=== PATIENT | female | born 1960 | race Caucasian/White ===

== ENCOUNTER 2017-04-05 10:38 | Outpatient (CLI) | payer OTHER ==
[2017-04-05 17:34] VITALS: BP 122/78
--- NOTE | 2017-04-06 04:12 | CARDIAC PROCEDURE NOTE ---
DATE OF SERVICE: 04/05/2017 00:00:00 PRIMARY CARE PHYSICIAN: Jak Casillas M.D., [facility] [employer] WORKER: Asmita Miranda M.D., [facility] PROCEDURES PERFORMED: Stress echocardiogram. PROCEDURE SYMPTOMS: Supraventricular tachycardia. CARDIAC RISK FACTORS: Smoker. PREVIOUS CARDIAC PROCEDURES: None. CLINICAL HISTORY: This is a 56-year-old female without known coronary artery disease. She has held her last two doses of metoprolol. Initial resting vital signs were blood pressure 122/78 and heart r ate 112. Height is 65 inches. Weight is 185 pounds. PROCEDURE AND FINDINGS: The patient's identity and date were verified. The consent was signed . After resting echo images were obtained, the patient performed treadmill exercise using the Osmany protocol completing 8 minutes 22 seconds and an estimated workload of 10.1 metabolic equivalents. Ma ximal blood pressure was 176/76 mmHg, with a heart rate of 160 [id number], or 96% of maximal pr edicted heart rate for age. The blood pressure response to exercise was normal. The patient stopped because she rated exercise as 18/20 and her target heart rate was achieved. The resting ECG demonst rated sinus tachycardia with poor R-wave progression. There was less than 0.[address] segment depressi on and a rare PVC. There were no SVT episodes. Post-exercise images were immediately obtained on ce ssation of exercise. FINAL IMPRESSION 1. No ECG signs of ischemia. Test incomplete. Awaiting echocardiographic report. 2. Negative stress test clinically for angina. 3. Rare premature ventricular contraction. JOB #: [id number] EXT JOB #:[id number]
== END 2017-04-05 10:39 | disposition home or self-care (01) ==
LOC: DI 10:38
DX: I47.1 Supraventricular tachycardia (principal); F17.200 Nicotine dependence, unspecified, uncomplicated
CPT/HCPCS: 93351

== ENCOUNTER 2017-06-11 15:27 | Outpatient (CLI) | payer OTHER | END 2017-06-11 15:28 | disposition home or self-care (01) | LOC: SC 15:27 | PROVIDERS: ATTEND Internal Medicine Pulmonary Disease | DX: R06.83 Snoring (principal); I47.1 Supraventricular tachycardia; K21.9 Gastro-esophageal reflux disease without esophagitis | CPT/HCPCS: 99203; 99212 ==

== ENCOUNTER 2017-10-19 22:07 | Outpatient (CLI) | payer OTHER | END 2017-10-19 22:08 | disposition home or self-care (01) | LOC: SC 22:07 | PROVIDERS: ATTEND Internal Medicine Pulmonary Disease | DX: G47.33 Obstructive sleep apnea (adult) (pediatric) (principal); G47.61 Periodic limb movement disorder | CPT/HCPCS: 95810 ==

== ENCOUNTER 2017-11-26 11:00 | Outpatient (CLI) | payer OTHER | END 2017-11-26 11:01 | disposition home or self-care (01) | LOC: SC 11:00 | PROVIDERS: ATTEND Internal Medicine Pulmonary Disease | DX: G47.33 Obstructive sleep apnea (adult) (pediatric) (principal) | CPT/HCPCS: 99212; 99213 ==

== ENCOUNTER 2018-03-18 15:23 | Outpatient (CLI) | payer OTHER | END 2018-03-18 15:24 | disposition home or self-care (01) | LOC: SC 15:23 | PROVIDERS: ATTEND Internal Medicine Pulmonary Disease | DX: G47.33 Obstructive sleep apnea (adult) (pediatric) (principal); G25.81 Restless legs syndrome; G47.61 Periodic limb movement disorder | CPT/HCPCS: 99212; 99213 ==

== ENCOUNTER 2019-02-10 06:06 | Day surgery (SDC) | payer OTHER ==
[2019-02-10] MEDS ORDERED: LACTATED RINGERS 1,000 ML IV ONE ×4 (06:50→08:48)
--- NOTE | 2019-02-10 07:01 | ANESTHESIA ---
Pre-Anesthesia VS, & Labs - Diagnosis post menopausal bleeding - Procedure myosure hysteroscopy,d&c, polypectomy Vital Signs: Temp Pulse Resp BP Pulse Ox 36.6 C 69 16 138/99 H 97 02/10/19 06:50 02/10/19 06:50 02/10/19 06:50 02/10/19 06:50 02/10/19 06:50 Height 5 ft 5 in Weight (kg) 92 kg - NPO >8 hours - Is Patient ?: Not Applicable Home Medications and Allergies Home Medications: Ambulatory Orders Albuterol Sulfate [Proair Respiclick] 90 mcg IH 02/04/19 Albuterol Sulfate [Proair Respiclick] 90 mcg IH 02/04/19 Amitriptyline [Elavil] 50 mg PO HS 02/04/19 Aspirin [Aspirin EC] 81 mg PO DAILY 02/04/19 Estrogen,Con/M-Progest Acet [Prempro 0.625-5 mg Tablet] 1 each PO DAILY 02/04/19 Metoprolol Tartrate 50 mg PO BID 02/04/19 Pramipexole [Mirapex] 0.25 mg PO HS 02/04/19 Tizanidine HCl [Zanaflex] 2 mg PO PRN PRN 02/04/19 Albuterol Sulfate [Proair Respiclick] 90 mcg IH 02/04/19 Albuterol Sulfate [Proair Respiclick] 90 mcg IH 02/04/19 Amitriptyline [Elavil] 50 mg PO HS 02/04/19 Aspirin [Aspirin EC] 81 mg PO DAILY 02/04/19 Estrogen,Con/M-Progest Acet [Prempro 0.625-5 mg Tablet] 1 each PO DAILY 02/04/19 Metoprolol Tartrate 50 mg PO BID 02/04/19 Pramipexole [Mirapex] 0.25 mg PO HS 02/04/19 Tizanidine HCl [Zanaflex] 2 mg PO PRN PRN 02/04/19 Allergies/Adverse Reactions: Allergies Allergy/AdvReac Type Severity Reaction Status Date / Time bupropion Allergy Intermediate Unknown Verified 02/04/19 10:58 cefazolin Allergy Itching Verified 02/04/19 10:59 celecoxib [From Celebrex] Allergy Edema Verified 02/04/19 10:59 latex Allergy Unknown Verified 02/04/19 10:59 rofecoxib Allergy Edema Verified 02/04/19 11:03 scopolamine Allergy Unknown Verified 02/04/19 11:01 varenicline [From Chantix] Allergy Unknown Verified 02/04/19 11:05 Anes History & Medical History - Anesthetic History Anesthesia Complications: reports: Post-Operative Nausea/Vomiting Family history of Anesthesia Complications: Denies Family history of Malignant Hyperthermia: Denies - Medical History Cardiovascular: reports: Other Pulmonary: reports: None Gastrointestinal: reports: None Urinary: reports: Other Musculoskeletal: reports: Other Endocrine/Autoimmune: reports: None Skin: reports: None - Surgical History General: Colonoscopy Eyes Ears Nose Throat (EENT): Tonsil/Adenoidectomy Gynecologic: Dilation and currettage, Other Orthopedic: Other Exam General: Alert, Oriented x3, Cooperative, No acute distress Dental: Other (bridge) Mouth Openin Fingerbreadth Neck Mobility: Normal Mallampati classification: II Thyromental Distance: greater than 6 cm Respiratory: Lungs clear, Normal breath sounds, No respiratory distress, No accessory muscle use Cardiovascular: Regular rate, Normal S1, Normal S2, No murmurs Plan Anesthesia Type: General Consent for Procedure(s) Verified and Reviewed: No Code Status: Attempt Resuscitation ASA classification: 2-Mild systemic disease Is this case an emergency?: No
[2019-02-10] MEDS ORDERED: LIDOCAINE MPF 2%-EPI 1:200000 20 ML VIAL ONE (07:03)
[2019-02-10] MEDS ORDERED: LIDOCAINE-MPF 1% 30 ML VIAL ONE (07:03)
[2019-02-10] MEDS ORDERED: VASOPRESSIN 20 UNIT/ML VIAL ONE (07:21)
[2019-02-10] MEDS ORDERED: SILVER NITRATE APPLICATOR TOP ONE (07:21)
[2019-02-10] MEDS ORDERED: DOXYCYCLINE INJ 100 MG in SODIUM CHLORIDE 0.9% MINIBAG 100 ML IV ONE (08:04)
[2019-02-10] MEDS ORDERED: ONDANSETRON 4 MG/2 ML VIAL IVP PRN (08:47)
[2019-02-10] MEDS ORDERED: HYDROcod/ACETAM 10 MG/325 MG TABLET PO PRN (08:47)
[2019-02-10] MEDS ORDERED: ONDANSETRON 4 MG/2 ML VIAL IVP ONE (08:52)
[2019-02-10] MEDS ORDERED: ACETAMINOPHEN 1,000 MG/100 ML 100 ML IV ONE (08:52)
[2019-02-10] MEDS ORDERED: DEXAMETHASONE 4 MG/ML VIAL IVP ONE (08:52)
[2019-02-10] MEDS ORDERED: LIDOCAINE-MPF 2% 5 ML VIAL IM ONE (08:52)
[2019-02-10] MEDS ORDERED: PROPOFOL 200 MG/20 ML VIAL IVP ONE (08:52)
[2019-02-10] MEDS ORDERED: KETOROLAC 30 MG/ML VIAL IVP ONE (08:52)
[2019-02-10] MEDS ORDERED: DOXYCYCLINE 100 MG VIAL IV ONE (08:52)
--- NOTE | 2019-02-10 08:54 | OPERATIVE REPORT ---
Operative Report - General Procedure Date: 02/10/19 Planned Procedure: Hysteroscopy, dilation and curettage, removal of left perineal skin tag Pre-Op Diagnosis: Postmenopausal bleeding, thickened endometrium, left perineal skin tag Procedure Performed: Hysteroscopy, Myosure polypectomy, fractional dilation and curettage, removal of left perineal skin tag Post Op Diagnosis: Endometrial polyps, left perineal skin tags - Procedure Note Primary Surgeon: Dr. Annel Arechiga Secondary Surgeon: None Anesthesia Provider: IRVIN Zhang Anesthesia Technique: General LMA (Spinal attempted, but could not enter space; so decision made to proceed with General LMA.), Local (Local: 2% lido with epi, 12 ml for cervical block) Pathology: 1. Endometrial polyps 2. Endocervical curettings (ECC) 3. Endometrial curettings 4. Left perineal skin tags IV Fluids (mL): 500 Estimated Blood Loss (mL): 4 Urine Output (mL): 0 Indications: The patient is a 58-year-old, 0, female with postmenopausal bleeding and an ultrasound demonstrating an endometrial thickness at the upper limit of normal for a postmenopausal woman. She has been postmenopausal for 5 years and underwent endometrial biopsy last year for bleeding. Results did not show concerning finding but was limited by lack of uterine stroma and glands. She has been monitoring the bleeding since then. Of note, there was difficulty entering the endometrial cavity at the time of her endometrial biopsy, making the specimen potentially insufficient. She had recurrent bleeding in mid November, which prompted a repeat ultrasound. She is using Prempro hormonal placement therapy for management of persistent hot flushes. She has a history of previous dilation curettage and hysteroscopy, and endometrial polyp was noted and removed. The pathology of that was benign. 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 Her pelvic ultrasound on 24 January 2018 showed an anteverted uterus with punctate, nonshadowing, high attenuation area within the endometrial cavity and lower uterine segment that could reflect an endometrial calcification or glandular secretion. The endometrial canal echo was otherwise unremarkable. The thickness was at the upper limits of normal for a postmenopausal patient, measuring 5 to 6 mm maximal thickness. No discrete endometrial mass was seen on ultrasound. The ovaries were identified bilaterally and normal in appearance. Following these findings, and with the patient's symptoms of postmenopausal bleeding, it was recommended she undergo repeat visualization of the endometrial cavity, removal of any potential polyps, and thorough curettage to ensure absence of hyper- or neoplasia. The patient was in agreement with this plan. The procedure, risks, benefits, limitations, and alternatives of surgery were discussed. The consent was then reviewed and signed prior to the date of surgery. Findings: Exam under anesthesia: The uterus is approximately 6 weeks in size and anteverted. No adnexal masses were palpable. Hysteroscopic findings: The endometrial cavity was well visualized, including the tubal ostia bilaterally. At the anterior fundus, just to the patient's right of midline, an approximately 1-1.5 cm area of polypoid tissue was noted. A second area of polypoid tissue was noted at the posterior endometrium just above the internal cervical loss. The cavity was otherwise normal in appearance. The polypoid tissue was effectively removed with the MyoSure. Perineum: A cluster of skin tags was noted at the left mid perineum and removed at the stalk. A second, single skin tag was noted just lateral to the left labia majora. This was removed in a similar fashion. The external female genitalia was otherwise normal in appearance. Complications: None - Other Other Information/Narrative: The patient was taken to the operating room, where Spinal anesthetic was attempted but unsuccessful. General anesthesia with LMA was then administered without difficulty. She was then positioned in the high dorsal lithotomy position with her lower extremities in [place] stirrups. Exam under anesthesia was then performed with the findings as noted above. Vagina and perineum were then prepped and draped in a sterile fashion. Procedure Time-Out was then performed. A sterile bivalved speculum was then placed into the vagina, and the anterior lip of the cervix was grasped with a single-tooth tenaculum. Two percent lidocaine with epinephrine was then injected at the 2:00, 4:00, 7:00, and 10:00 positions for a paracervical block, using 12 ml of local. The cervix was then serially dilated to a 7 mm pink acute dilator. A larger size lacrimal duct dilator was utilized at first, then subsequent dilation occurred easily without excessive pressure. The Myosure hysteroscope was then advanced; and , using saline for distension, the cavity was visualized with the findings as note above. Using the Myosure Lite, the Myosure device effectively removed both areas of polypoid tissue, and then the device was removed. Endocervical cur ettage was then performed followed by gentle sharp endometrial curettage. The score was then re-introduced, but visualization was limited due to bleeding. The hysteroscopic portion of the case was then deemed complete. The total fluid deficit was 325 ml. The tenaculum was. removed, and the tenaculum sites were hemostatic without need for silver nitrate. The speculum was then removed from the vagina. The left perineal skin tags were removed sharply across the base using Metzenbaum scissors. A total of four tags were sent to pathology. Dermabond skin adhesive was then applied to the removal sites. At this point, the procedure was deemed completed. Sponge, lap, and needle count were correct x 3, and there were no complications. The patient was awakened, replaced supine, and transferred to the PACU in stable condition.
[2019-02-10 10:06] VITALS: BP 121/77
== END 2019-02-10 06:07 | disposition home or self-care (01) ==
LOC: SDS 06:06
PROVIDERS: ATTEND Obstetrics & Gynecology
PROC: 0HB9XZZ Excision of Perineum Skin, External Approach (ICD-10-PCS; 2019-02-10)
PROC: 0UB98ZZ Excision of Uterus, Via Natural or Artificial Opening Endoscopic (ICD-10-PCS; principal; 2019-02-10 07:30)
PROC: 0UDB7ZZ Extraction of Endometrium, Via Natural or Artificial Opening (ICD-10-PCS; 2019-02-10 07:30)
DX: N95.0 Postmenopausal bleeding (principal); R93.89 Abnormal findings on diagnostic imaging of other specified body structures; N80.9 Endometriosis, unspecified; N90.89 Other specified noninflammatory disorders of vulva and perineum; N97.9 Female infertility, unspecified; N95.1 Menopausal and female climacteric states; I47.1 Supraventricular tachycardia; G25.81 Restless legs syndrome; I10 Essential (primary) hypertension; Z72.0 Tobacco use; Z79.82 Long term (current) use of aspirin; Z79.890 Hormone replacement therapy; Z79.899 Other long term (current) drug therapy
CPT/HCPCS: 11200; 58558; J0131; J7120

== ENCOUNTER 2020-10-12 15:32 | Outpatient (CLI) | payer OTHER ==
--- OUTSIDE RECORDS SUMMARY | 2020-10-13 04:50 | EXTERNAL MEDICAL SUMMARY RPT | Continuity of Care Document ---
:1960 Demographics Phone Unavailable Preferred Language Unknown Marital Status Unknown Religion Affiliation Unknown Race Unknown Ethnic Group Unknown Author Organization [place] Address [address] [phone] Phone Care Team Providers Name Role Phone SARMIENTO Unavailable Unavailable Casillas Unavailable Unavailable Paliwal Unavailable Unavailable Problems date description facility 2017-04-05 10:38 NICOTINE DEPENDENCE, UNSPECIFIED, [facility] UNCOMPLICATED 2017-04-05 10:38 SUPRAVENTRICULAR TACHYCARDIA [facility] 2017-06-11 15:27 SUPRAVENTRICULAR TACHYCARDIA [facility] 2017-06-11 15:27 GASTRO-ESOPHAGEAL REFLUX DISEASE [facility] WITHOUT ESOPHAGITIS 2017-06-11 15:27 SNORING Formerly [facility] 2017-10-19 22:07 OBSTRUCTIVE SLEEP APNEA (ADULT) [facility] (PEDIATRIC) 2017-10-19 22:07 PERIODIC LIMB MOVEMENT DISORDER [facility] 2017-11-26 11:00 OBSTRUCTIVE SLEEP APNEA (ADULT) [facility] (PEDIATRIC) 2018-03-18 15:23 RESTLESS LEGS SYNDROME [facility] 2018-03-18 15:23 OBSTRUCTIVE SLEEP APNEA (ADULT) [facility] (PEDIATRIC) 2018-03-18 15:23 PERIODIC LIMB MOVEMENT DISORDER [facility] 2019-02-10 06:06 RESTLESS LEGS SYNDROME [facility] 2019-02-10 06:06 ESSENTIAL (PRIMARY) HYPERTENSION [facility] 2019-02-10 06:06 SUPRAVENTRICULAR TACHYCARDIA [facility] 2019-02-10 06:06 ENDOMETRIOSIS, UNSPECIFIED formerly [facility] 2019-02-10 06:06 OTH NONINFLAMMATORY DISORDERS OF [facility] VULVA AND PERINEUM 2019-02-10 06:06 POSTMENOPAUSAL BLEEDING [facility] 2019-02-10 06:06 MENOPAUSAL AND FEMALE CLIMACTERIC [facility] STATES 2019-02-10 06:06 FEMALE INFERTILITY, UNSPECIFIED [facility] 2019-02-10 06:06 ABNORMAL FINDINGS ON DX IMAGING OF [facility] OTH BODY STRUCTURES 2019-02-10 06:06 TOBACCO USE [facility] 2019-02-10 06:06 LONGTERM (CURRENT) USE OF ASPIRIN [facility] 2019-02-10 06:06 HORMONE REPLACEMENT THERAPY [facility] 2019-02-10 06:06 OTHER QUALITY CONTROL INSPECTOR (CURRENT) DRUG [facility] 2019-04-28 13:08 RESTLESS LEGS SYNDROME [facility] 2019-04-28 13:08 OBSTRUCTIVE SLEEP APNEA (ADULT) [facility] (PEDIATRIC) 2020-04-27 10:06 OBESITY, UNSPECIFIED [facility] 2020-04-27 10:06 RESTLESS LEGS SYNDROME [facility] 2020-04-27 10:06 OBSTRUCTIVE SLEEP APNEA (ADULT) [facility] (PEDIATRIC) 2020-04-27 10:06 BODY MASS INDEX (BMI) 33.0-33.9, [facility] ADULT Allergies date description facility ADHESIVE \T\ TAPE [facility] BUPROPION [facility] LATEX [facility] SERTRALINE [facility] VENOM-HONEY BEE [facility] SOY [facility] ETONOGESTREL [facility] HYDROCODONE-ACETAMINOPHEN [facility] scopolamine [facility] bupropion [facility] c[facility]azolin [facility] celecoxib [facility] rofecoxib [facility] latex [facility] varenicline [facility] scopolamine [facility] bupropion [facility] cefazolin [facility] celecoxib [facility] rofecoxib [facility] latex [facility] varenicline [facility] MORPHINE [facility] AMPICILLIN [facility] OPJLYGWAET-YH-GHGKCHYZI [facility] SULFAMETHOXAZOLE-TRIMETHOPRIM formerly [facility] ADHESIVE TAPE-SILICONES [facility] Social History date description facility [id number]
--- NOTE | 2020-10-14 08:00 | Mammography Report ---
BILATERAL DIGITAL SCREENING MAMMOGRAM 3D/2D: 10/12/2020 CLINICAL: Routine screening. Prior mammograms [facility] 12/25/2018, 12/05/2017, and 11/22/2015 are compared. Ther e are scattered fibroglandular elements in both breasts. No significant masses, calcifications, or other findings are seen in either breast. IMPRESSION: NEGATIVE There is no mammographic evidence of malignancy. A 1 year screening mammogram is recommended. This exam was interpreted at Station ID: [id number]. NOTE: For mammograms, a report in lay terms will be sent to the patient. Approximately 15% of breast malignancies will not be visualized mammographically. In the management of a palpable breast mass, a negative mammogram must not discourage biopsy of a clinically suspicious lesion. Electronically Signed By: Porfirio Kim M.D. slc/:10/13/2020 17:30:25 ACR BI-RADS Category 1: Negative 3341F PARENCHYMAL PATTERN: (A) - The breast(s) demonstrate(s) scattered fibroglandular densities. BI-RADS CATEGORY: (1) - 1 RECOMMENDATION: (ANNUAL) - Recommend routine annual screening mammography. [id number] 1 year screening LATERALITY: (B)
== END 2020-10-12 15:33 | disposition home or self-care (01) ==
LOC: DI.N 15:32
DX: Z12.31 Encounter for screening mammogram for malignant neoplasm of breast (principal)
CPT/HCPCS: 77067

== ENCOUNTER 2022-05-01 14:56 | Outpatient (CLI) | payer OTHER ==
[2022-05-01 15:29] VITALS: BP 125/78
--- NOTE | 2022-05-01 15:29 | SLEEP CARE CONSULTATION ---
Information from patient questionnaire entered by Carolyn Lozano MA. I have reviewed and concur with the information entered by Carolyn Lozano MA. This document represents the service I personally performed and the decisions made by me, Christoph Morris MD, [facility]. History of Present Illness Service Date and Time: 05/01/2022 1456 Previous diagnosis: Mild, Obstructive Sleep Apnea-Hypopnea Syndrome (untreated) AHI: 5.6 (in 2018) Reason for follow up: annual (LAST SEEN 03/2021, NON CPAP USER, [facility] 10/25/2017, MILD, ) Prior sleep studies: Yes Year and Where: 2017 - [facility] Sleep HPI additional information: Ms. Holder returned today for an annual follow up of restless leg syndrome treatment. She was diagnosed to have mild obstructive sleep apnea-hypopnea and restless leg syndrome. She decided against using a CPAP. She says that she has quit drinking alcohol in the evening. She has been taking pramipexole 0.25 mg in the evening for the past 3 years. She reports tremendous improvement with just one tablet after dinner. Once in a while she takes another tablet in the middle of the night. No side effects such as nausea, vomiting, visual disturbances, light headedness, muscle ache or obsessive-compulsive behaviors. The discomfort does not involve her arms. Sleep Study - Results Prior sleep studies: Yes Year and Where: 2017 - [facility] Sleep Subjective Initial [place] Sleepiness Scale score: 6 (in 2017) Current [place] Sleepiness Scale score: 4 (05/01/2022) Allergies and Home Medications Known drug allergies: Yes (SEE LIST) Drug allergies reviewed: Yes Home medication list reviewed: Yes Allergy and home medication list: Allergies bupropion Allergy (Intermediate, Verified 02/04/19 10:58) Unknown Patient states it makes her "out of it." cefazolin Allergy (Verified 02/04/19 10:59) Itching celecoxib [From Celebrex] Allergy (Verified 02/04/19 10:59) Edema and abdominal pain/cramping latex Allergy (Verified 02/04/19 10:59) Unknown rofecoxib Allergy (Verified 02/04/19 11:03) Edema scopolamine Allergy (Verified 02/04/19 11:01) Unknown blisters of skin varenicline [From Chantix] Allergy (Verified 02/04/19 11:05) Unknown Review of Systems Review of systems same as previous: Yes Physical Exam Vital signs obtained and entered by: EARLE HAHN Blood Pressure: 125/78 (RESP 18, PULE 56) Heart Rate: 55 O2 Saturation: 97 (CLOTH MASK) Height: 5 ft 5 in Weight: 200 lb (CLOTHES) Body Mass Index: 33.3 BMI Classification: Obese Impression and Plan IMPRESSION: 1. Obstructive Sleep Apnea-Hypopnea Syndrome, mild, untreated. This is reasonable. Her snore has not gotten any louder. Her weight has not gone up. 2. Restless leg syndrome/periodic leg movement of sleep. The patient responds very well to low dose pramipexole. I refilled the medication, and she now has enough for another year. PLAN: 1. Refill pramipexole 0.25 mg #100 with 3 refills. 2. Try to lose weight 3. Return for follow up in a year or earlier if there is any problem. Visit Type: In Office Time Spent with Patient (minutes): 20 Provider Statement: I spent 100% of the Face to Face Visit with the patient with greater than 50% spent counseling the patient and coordination of care.
== END 2022-05-01 14:57 | disposition home or self-care (01) ==
LOC: SC 14:56
PROVIDERS: ATTEND Internal Medicine Pulmonary Disease
DX: G47.33 Obstructive sleep apnea (adult) (pediatric) (principal); G25.81 Restless legs syndrome; G47.61 Periodic limb movement disorder; E66.9 Obesity, unspecified; Z68.33 Body mass index [BMI] 33.0-33.9, adult
CPT/HCPCS: 99212; 99213

== ENCOUNTER 2023-04-23 13:01 | Outpatient (CLI) | payer OTHER ==
--- NOTE | 2023-04-23 13:33 | SLEEP CARE CONSULTATION ---
Information from patient questionnaire entered by Manuela Pryor. I have reviewed and concur with the information entered by Manuela Pryor. This document represents the service I personally performed and the decisions made by me, Christoph Morris MD, [facility]. History of Present Illness Service Date and Time: 04/23/2023 1301 Previous diagnosis: Mild, Obstructive Sleep Apnea-Hypopnea Syndrome (untreated) AHI: 5.6 (in 2018) Reason for follow up: other (11 MONTH F/U POS SD) Prior sleep studies: Yes Year and Where: 2018 - [facility] Sleep HPI additional information: Ms. Holder returned today for an annual follow up of restless leg syndrome treatment. She was diagnosed to have mild obstructive sleep apnea-hypopnea and restless leg syndrome. She decided against using a CPAP. She says that she has quit drinking alcohol in the evening. She has been taking pramipexole 0.25 mg in the evening for the past 3 years. She reports tremendous improvement with ju st one tablet after dinner. Once in a while she takes another tablet in the middle of the night. No side effects such as nausea, vomiting, visual disturbances, light headedness, muscle ache or obsessive-compulsive behaviors. The discomfort does not involve her arms. Sleep Study - Results Prior sleep studies: Yes Year and Where: 2018 - [facility] Sleep Subjective Initial [place] Sleepiness Scale score: 6 (in 2017) Current [place] Sleepiness Scale score: 4 (04/23/23) Allergies and Home Medications Drug allergies reviewed: Yes Home medication list reviewed: Yes Allergy and home medication list: Allergies bupropion Allergy (Intermediate, Verified 04/20/23 09:24) Unknown Patient states it makes her "out of it." cefazolin Allergy (Verified 04/20/23 09:24) Itching celecoxib [From Celebrex] Allergy (Verified 04/20/23 09:24) Edema and abdominal pain/cramping latex Allergy (Verified 04/20/23 09:24) Unknown rofecoxib Allergy (Verified 04/20/23 09:24) Edema scopolamine Allergy (Verified 04/20/23 09:24) Unknown blisters of skin varenicline [From Chantix] Allergy (Verified 04/20/23 09:24) Unknown Review of Systems Review of systems same as previous: Yes Physical Exam Vital signs obtained and entered by: MANUELA Dangelo MA Blood Pressure: 128/80 (LEFT ARM) Cuff size: regular Heart Rate: 80 O2 Saturation: 97 Height: 5 ft 5 in Weight: 203 lb 12.8 oz Body Mass Index: 33.9 BMI Classification: Obese Impression and Plan IMPRESSION: 1. Obstructive Sleep Apnea-Hypopnea Syndrome, mild, untreated. This is reasonable. Her snore has not gotten any louder. Her weight is about the same 2. Restless leg syndrome/periodic leg movement of sleep. The patient responds very well to low dose pramipexole. I refilled the medication, and she now has enough for another year. PLAN: 1. Refill pramipexole 0.25 mg #100 with 3 refills. 2. Try to lose weight 3. Return for follow up in a year or earlier if there is any problem. Prescriptions: Other (pramipexole 025 mg #100 with 3 refills.) Follow up with Sleep Care in: 1 year Visit Type: In Office Time Spent with Patient (minutes): 15 Provider Statement: I spent 100% of the Face to Face Visit with the patient with greater than 50% spent counseling the patient and coordination of care.
[2023-04-23 13:38] VITALS: BP 128/80
== END 2023-04-23 13:02 | disposition home or self-care (01) ==
LOC: SC 13:01
PROVIDERS: ATTEND Internal Medicine Pulmonary Disease
DX: G47.33 Obstructive sleep apnea (adult) (pediatric) (principal); G25.81 Restless legs syndrome; G47.61 Periodic limb movement disorder; E66.9 Obesity, unspecified; Z68.33 Body mass index [BMI] 33.0-33.9, adult; Z79.899 Other long term (current) drug therapy
CPT/HCPCS: 99212